=== PATIENT | male | born 1980 | race Caucasian/White ===

== ENCOUNTER 2017-09-18 18:47 | Emergency (ER) | payer SELFPAY ==
[~2017-09-18] VITALS: Ht 172.7 cm; Wt 77.1 kg
[2017-09-18 19:29] VITALS: BP 137/90; Ht 172.7 cm; Wt 77.1 kg
== END 2017-09-18 21:00 | disposition home or self-care (01) ==
LOC: ED 18:47
DX: S61.306A Unspecified open wound of right little finger with damage to nail, initial encounter (principal); X58.XXXA Exposure to other specified factors, initial encounter; Y93.89 Activity, other specified; Y92.89 Other specified places as the place of occurrence of the external cause; Y99.8 Other external cause status
CPT/HCPCS: A4570